=== PATIENT | male | born 1945 | race Caucasian/White ===

== ENCOUNTER 2017-05-01 02:35 | Emergency (ER) | payer MEDICARE ==
[2017-05-01 02:48] VITALS: TEMP 98; BMI 37.0
--- NOTE | 2017-05-01 03:29 | PDOC ---
History of Present Illness - General History Source: Patient Exam Limitations: No Limitations <Sammie Wayne - Last Filed: 05/01/17 03:35> - General History Source: Patient <Darryl Land - Last Filed: 05/05/17 19:32> - General Chief Complaint: Palpitations Stated Complaint: ANXIETY Time Seen by Provider: 05/01/17 02:38 - History of Present Illness Initial Comments: 05/01/17 03:35 The patient is a 71 year old male, with a significant past medical history of Atrial fibrillation, HTN, HLD who presents to the emergency department with palpitations today. Patient states he was exercising and immediately felt sudden onset of palpitations. Patient states he experienced a similar episode 5 years ago when he was diagnosed with Afib. Patient denied any chest pain, chest pressure, SOB, lightheadedness, dizziness or headache. Patient took aspirin however denies any relief of symptoms. He denies fever, chills, abdominal pain, nausea, vomit, diarrhea or constipation. He denies dysuria, frequency, urgency or hematuria. Allergies: Past surgical history: R elbow and L hand surgery Social history: None PCP: Dr. Boyce (Sammie Wayne) Past History <Tone,Sammie - Last Filed: 05/01/17 03:35> - Past Medical History Cardiac Disorders: Yes (atrial fib) HTN: Yes Hypercholesterolemia: Yes - Psycho/Social/Smoking Cessation Hx Anxiety: No Suicidal Ideation: No Smoking History: Never smoked Have you smoked in the past 12 months: No Information on smoking cessation initiated: No Hx Alcohol Use: No Drug/Substance Use Hx: No <Darryl Land - Last Filed: 05/05/17 19:32> - Past Medical History Allergies/Adverse Reactions: Allergies Allergy/AdvReac Type Severity Reaction Status Date / Time No Known Allergies Allergy Verified 05/01/17 02:46 Home Medications: Ambulatory Orders Propafenone HCl [Rythmol -] 150 mg PO TID 05/07/15 Metoprolol Tartrate [Lopressor -] 50 mg PO BID tablet 05/09/15 Atorvastatin Ca [Lipitor] 40 mg PO HS #30 tablet 05/15/15 Tamsulosin HCl [Flomax -] 0.4 mg PO DAILY@0830 #30 cap.er.24h 09/15/15 Review of Systems - Review of Systems Able to Perform ROS?: Yes <Sammie Wayne - Last Filed: 05/01/17 03:35> <Darryl Land - Last Filed: 05/05/17 19:32> - Review of Systems Comments:: 05/01/17 03:35 GENERAL/CONSTITUTIONAL: No fever or chills. No weakness. HEAD, EYES, EARS, NOSE AND THROAT: No change in vision. No ear pain or discharge. No sore throat. GASTROINTESTINAL: No nausea, vomiting, diarrhea or constipation. GENITOURINARY: No dysuria, frequency, or change in urination. CARDIOVASCULAR:+palpitations. No chest pain or shortness of breath. RESPIRATORY: No cough, wheezing, or hemoptysis. MUSCULOSKELETAL: No joint or muscle swelling or pain. No neck or back pain. SKIN: No rash NEUROLOGIC: No headache, vertigo, loss of consciousness, or change in strength/ sensation. ENDOCRINE: No increased thirst. No abnormal weight change. HEMATOLOGIC/LYMPHATIC: No anemia, easy bleeding, or history of blood clots. ALLERGIC/IMMUNOLOGIC: No hives or skin allergy. (Sammie Wayne) *Physical Exam <Sammie Wayne - Last Filed: 05/01/17 03:35> <Darryl Land - Last Filed: 05/05/17 19:32> - Vital Signs Last Vital Signs Temp Pulse Resp BP Pulse Ox 98.0 F 68 21 144/83 100 05/01/17 02:46 05/01/17 04:48 05/01/17 04:48 05/01/17 04:48 05/01/17 04:48 - Physical Exam Comments: 05/01/17 03:36 GENERAL: Awake, alert, and fully oriented, in no acute distress HEAD: No signs of trauma EYES: PERRLA, EOMI, sclera anicteric, conjunctiva clear ENT: Auricles normal inspection, hearing grossly normal, nares patent, oropharynx clear without exudates. Moist mucosa NECK: Normal ROM, supple, no lymphadenopathy, JVD, or masses LUNGS: Breath sounds equal, clear to auscultation bilaterally. No wheezes, and no crackles HEART: Regular rate and rhythm, normal S1 and S2, no murmurs, rubs or gallops ABDOMEN: Soft, nontender, normoactive bowel sounds. No guarding, no rebound. No masses EXTREMITIES: Normal range of motion, no edema. No clubbing or cyanosis. No cords, erythema, or tenderness NEUROLOGICAL: Cranial nerves II through XII grossly intact. Normal speech, normal gait SKIN: Warm, Dry, normal turgor, no rashes or lesions noted. (Sammie Wayne) ED Treatment Course - LABORATORY CBC & Chemistry Diagram: 05/01/17 03:28 05/01/17 03:28 <Darryl Land - Last Filed: 05/05/17 19:32> - ADDITIONAL ORDERS Additional order review: 05/01/17 03:28 RBC 4.50 D MCV 87.6 MCHC 34.5 RDW 15.1 D MPV 8.8 D Medical Decision Making <Sammie Wayne - Last Filed: 05/01/17 03:35> <Darryl Land - Last Filed: 05/05/17 19:32> - Medical Decision Making 05/05/17 19:32 Dr. Land: The scribe's documentation has been prepared under my direction and personally reviewed by me in its entirery. I confirm that the note above accurately reflects all work, treatment, procedures, and medical decision making performed by me. (Darryl Land) *DC/Admit/Observation/Transfer <Sammie Wayne - Last Filed: 05/01/17 03:35> - Discharge Dispostion Admit: No <Darryl Land - Last Filed: 05/05/17 19:32> Diagnosis at time of Disposition: Palpitations - Discharge Dispostion Disposition: HOME Condition at time of disposition: Good - Patient Instructions Additional Instructions: Please return to ED if you experience chest pain, shortness of breath, worsening palpitations or worsening symptoms. - Attestations Scribe Attestion: 05/01/17 03:36 Documentation prepared by Sammie Wayne, acting as medical records analyst for Darryl Land DO. (Sammie Wayne)
[2017-05-01 03:42] LABS: MCH 30.2 pg (25.7-33.7); MCHC 34.5 g/dl (32.0-35.9); MEAN CELL VOLUME 87.6 fl (80-96); MEAN PLT VOLUME 8.8 fl (7.5-11.1); PLATELET COUNT 180 K/MM3 (134-434); RDW 15.1 % (11.9-15.9); WHITE BLOOD COUNT 11.3 K/mm3 (4.0-10.0)
--- NOTE | 2017-05-01 04:03 | PDOC ---
History of Present Illness - General Chief Complaint: Palpitations Stated Complaint: ANXIETY Time Seen by Provider: 05/01/17 02:38 History Source: Patient - History of Present Illness Initial Comments: 05/01/17 03:54 71 yo M with h/o Afib who presents with palpitations. Pt. reports palpitations beginning of 1 hour duration prior to arrival. Pt. states that he arrived EMS with normal EKG. Denies any other symptoms. Denies chest pain, SOB, lightheadedness, syncope, fevers/chills, N/V, back pain, weakness, numbness/ tingling, jaw pain, neck pain. On Propafenone and Metoprolol. Past History - Past Medical History Allergies/Adverse Reactions: Allergies Allergy/AdvReac Type Severity Reaction Status Date / Time No Known Allergies Allergy Verified 05/01/17 02:46 Home Medications: Ambulatory Orders Propafenone HCl [Rythmol -] 150 mg PO TID 05/07/15 Metoprolol Tartrate [Lopressor -] 50 mg PO BID tablet 05/09/15 Atorvastatin Ca [Lipitor] 40 mg PO HS #30 tablet 05/15/15 Tamsulosin HCl [Flomax -] 0.4 mg PO DAILY@0830 #30 cap.er.24h 05/15/15 Cardiac Disorders: Yes (atrial fib) HTN: Yes Hypercholesterolemia: Yes - Psycho/Social/Smoking Cessation Hx Anxiety: No Suicidal Ideation: No Smoking History: Never smoked Have you smoked in the past 12 months: No Information on smoking cessation initiated: No Hx Alcohol Use: No Drug/Substance Use Hx: No Review of Systems - Review of Systems Comments:: 05/01/17 04:07 GENERAL/CONSTITUTIONAL: No fever or chills. No weakness. HEAD, EYES, EARS, NOSE AND THROAT: No change in vision. No ear pain or discharge. No sore throat.- CARDIOVASCULAR: + Palpitations. No chest pain or shortness of breath RESPIRATORY: No cough, wheezing, or hemoptysis. GASTROINTESTINAL: No nausea, vomiting, diarrhea or constipation. GENITOURINARY: No dysuria, frequency, or change in urination. MUSCULOSKELETAL: No joint or muscle swelling or pain. No neck or back pain. SKIN: No rash NEUROLOGIC: No headache, vertigo, loss of consciousness, or change in strength/ sensation. ENDOCRINE: No increased thirst. No abnormal weight change HEMATOLOGIC/LYMPHATIC: No anemia, easy bleeding, or history of blood clots. ALLERGIC/IMMUNOLOGIC: No hives or skin allergy. *Physical Exam - Vital Signs Last Vital Signs Temp Pulse Resp BP Pulse Ox 98.0 F 70 20 144/72 95 05/01/17 02:46 05/01/17 02:46 05/01/17 02:46 05/01/17 02:46 05/01/17 02:46 - Physical Exam Comments: 05/01/17 04:07 GENERAL: Awake, alert, and fully oriented, in no acute distress HEAD: No signs of trauma, normocephalic, atraumatic EYES: PERRLA, EOMI, sclera anicteric, conjunctiva clear ENT: Auricles normal inspection, hearing grossly normal, nares patent, oropharynx clear without exudates. Moist mucosa NECK: Normal ROM, supple, no lymphadenopathy, JVD, or masses LUNGS: No distress, speaks full sentences, clear to auscultation bilaterally HEART: Regular rate and rhythm, normal S1 and S2, no murmurs, rubs or gallops, peripheral pulses normal and equal bilaterally. EXTREMITIES: Normal inspection, Normal range of motion, no edema. No clubbing or cyanosis. SKIN: Warm, Dry, normal turgor, no rashes or lesions noted. Heart Score/ECG Review - History History: Slightly suspicious - Electrocardiogram EKG: Normal - Age Age: >/= 65 - Risk Factors Risk Factors Heart Score: Yes Hx Obesity Based on the list above the patient has:: 1-2 risk factors - ECG Intrepretation Rhythm: Regular Rhythm - [place]: Normal - ECG Impressions Normal ECG: Yes Non-specific ST Elevation: No Ischemic Changes: No Torsades melony Pointes: No WPW: No ED Treatment Course - LABORATORY CBC & Chemistry Diagram: 05/01/17 03:28 05/01/17 03:28 Medical Decision Making - Medical Decision Making 71 yo M with h/o Afib who presents with palpitations. Pt. reports palpitations beginning of 1 hour duration prior to arrival. Pt. states that he arrived EMS with normal EKG. Denies any other symptoms. Denies chest pain, SOB, lightheadedness, syncope, fevers/chills, N/V, back pain, weakness, numbness/ tingling, jaw pain, neck pain. On Propafenone and Metoprolol. DDx: Afib, Anxiety ED Course: CBC CMP EKG Stable Discharge 05/01/17 04:38 *DC/Admit/Observation/Transfer Diagnosis at time of Disposition: Palpitations - Discharge Dispostion Disposition: HOME Condition at time of disposition: Good Admit: No - Patient Instructions Additional Instructions: Please return to ED if you experience chest pain, shortness of breath, worsening palpitations or worsening symptoms.
[2017-05-01 04:12] LABS: INR 1.23 (0.82-1.09); PROTHROMBIN TIME (PATIENT) 13.6 SEC (9.98-11.88)
[2017-05-01 04:21] LABS: ANION GAP 11 (8-16); BILIRUBIN,TOTAL 0.8 mg/dL (0.2-1.0); CALCIUM 8.8 mg/dL (8.5-10.1); CO2 27 mmol/L (21-32); CREATININE 1.3 mg/dL (0.7-1.3); GLUCOSE,RANDOM 112 mg/dL (74-106); SGPT/ALT 30 U/L (12-78); TOT PROT 7.4 g/dl (6.4-8.2)
[2017-05-01 04:24] LABS: ALK PHOS 76 U/L (45-117); CPK 177 IU/L (39-308); TROPONIN I < 0.02 ng/ml (0.00-0.05)
[2017-05-01 04:28] LABS: SGOT/AST 29 U/L (15-37)
[2017-05-01 05:17] VITALS: BP 144/83; PULSE 68
--- NOTE | 2017-05-02 13:57 | EKG ---
Test Reason : Blood Pressure : / mmHG Vent. Rate : 069 BPM Atrial Rate : 069 BPM P-R Int : 194 ms QRS Dur : 104 ms QT Int : 402 ms P-R-T Axes : 073 008 023 degrees QTc Int : 430 ms NORMAL SINUS RHYTHM NORMAL ECG WHEN COMPARED WITH ECG OF 07-MAY-2015 09:32, NO SIGNIFICANT CHANGE WAS FOUND REPEAT EKG IF CLINICALLY INDICATED Confirmed by WANDA MUNOZ MD ([id number]) on 05/02/2017 1:56:42 PM Referred By: Confirmed By:WANDA MUNOZ MD
== END 2017-05-01 04:51 | disposition home or self-care (01) ==
LOC: JER 02:35
DX: R00.2 Palpitations (principal); I48.91 Unspecified atrial fibrillation; I10 Essential (primary) hypertension; E78.00 Pure hypercholesterolemia, unspecified
CPT/HCPCS: 36415; 80053; 82553; 83880; 84484; 85027; 85610; 93005; 93010; 99283-25

== ENCOUNTER 2019-08-19 03:57 | Emergency (ER) | payer OTHER, MEDICARE ==
[2019-08-19 04:06] VITALS: BP 170/84; PULSE 72; TEMP 97.1; BMI 36.2
--- NOTE | 2019-08-19 04:23 | PDOC ---
History of Present Illness - General Chief Complaint: Palpitations Stated Complaint: PALPITATIONS Time Seen by Provider: 08/19/19 04:05 History Source: Patient Exam Limitations: No Limitations - History of Present Illness Initial Comments: 08/19/19 04:20 73y M with PMH of Afib (metoprolol and Eliquis), HTN, HLD, BPH, Anxiety presenting to the ED with complaints of palpitations that began 4 hours ago and have been intermittent. Patient states he was diagnosed with Afib many years ago and has not had palpitations for a few years now. When he had similar symptoms in the past, the metoprolol dose was increased to 100 from 50. He states he was started on Eliquis 2 days ago but was not on anything prior to that. Denies chest pain, sob, cough, congestion, back pain, neck pain, headache , numbness/tingling, abdominal pain, n/v/d, weight changes, new leg swelling, recent surgeries or travel. He was diagnosed with an ear infection 1-2 weeks ago and took amoxicillin. PMD: [place] PMH: see hpi Meds: see med rec Allergies: nkda Past History - Past Medical History Allergies/Adverse Reactions: Allergies Allergy/AdvReac Type Severity Reaction Status Date / Time No Known Allergies Allergy Verified 08/19/19 04:00 Home Medications: Ambulatory Orders Propafenone HCl [Rythmol -] 150 mg PO TID 05/07/15 Atorvastatin Ca [Lipitor] 40 mg PO HS #30 tablet 05/15/15 Tamsulosin HCl [Flomax -] 0.4 mg PO DAILY@0830 #30 cap.er.24h 05/15/15 Apixaban [Eliquis] 5 mg PO BID 08/19/19 Metoprolol Tartrate [Lopressor -] 100 mg PO BID 08/19/19 Triamterene/Hydrochlorothiazid [Triamterene-Hctz 37.5-25 mg Cp] 1 each PO DAILY 08/19/19 Cardiac Disorders: Yes (atrial fib) HTN: Yes Hypercholesterolemia: Yes - Psycho Social/Smoking Cessation Hx Smoking History: Never smoked Have you smoked in the past 12 months: No Information on smoking cessation initiated: No Hx Alcohol Use: No Drug/Substance Use Hx: No Review of Systems - Review of Systems Constitutional: No: Symptoms Reported HEENTM: No: Symptoms Reported Respiratory: No: Symptoms reported Cardiac (ROS): Yes: Palpitations ABD/GI: No: Symptoms Reported : No: Symptoms Reported Musculoskeletal: No: Symptoms Reported Integumentary: No: Symptoms Reported Neurological: No: Symptoms reported *Physical Exam - Vital Signs Last Vital Signs Temp Pulse Resp BP Pulse Ox 97.1 F L 72 22 H 170/84 97 08/19/19 04:00 08/19/19 04:00 08/19/19 04:00 08/19/19 04:00 08/19/19 04:00 - Physical Exam General Appearance: Yes: Appropriately Dressed, Obese. No: Apparent Distress HEENT: positive: EOMI, JAYLEN, TMs Normal. negative: Pharyngeal Erythema, Tonsillar Exudate, TM Bulging, TM Dull, TM Erythema Neck: positive: Trachea midline, Supple. negative: Lymphadenopathy (R), Lymphadenopathy (L) Respiratory/Chest: positive: Lungs Clear, Normal Breath Sounds. negative: Crackles, Rales, Rhonchi, Stridor, Wheezing Cardiovascular: positive: Regular Rhythm, Regular Rate, S1, S2. negative: Edema , JVD, Murmur Gastrointestinal/Abdominal: positive: Normal Bowel Sounds, Soft. negative: Tender Extremity: positive: Normal Capillary Refill, Pedal Edema (up to ankles. baseline). negative: Swelling, Calf Tenderness, Erythema Integumentary: positive: Normal Color Neurologic: positive: arts manager II-XII NML intact, Fully Oriented, Alert, Normal Mood/ Affect, Normal Response, Motor Strength 5/5 ED Treatment Course - LABORATORY CBC & Chemistry Diagram: 08/19/19 04:35 08/19/19 04:35 - RADIOLOGY Radiology Studies Ordered: Category Date Time Status CHEST X-RAY PORTABLE* [RAD] Stat Radiology 08/19/19 04:08 Ordered Medical Decision Making - Medical Decision Making 08/19/19 04:27 73y M with PMH of afib presenting with complaints of intermittent palpitations x4h. vitals wnl pe benign ddx includes but not limited to afib rvr, pe, acs, mi dissection. patient appears comfortable, does not have any active complaints, resolved symptoms and normal exam. low suspicion for acs/pe. will obtain basic labs, cardiac labs, tsh. ekg, cxr. ekg: nsr at 69bpm. pr 200. otherwise normal intervals. no eladio or depressions. while in ED patient did not experience any palpitations and while on monitor there was no afib rvr or tachycardia. labs show low K (repleted) and elevated t. bili with normal lfts. does not require cxr given patient does not have any symptoms. safe for dc home. will f/u with pmd and sales representative supervisor. given return precautions Discharge - Discharge Information Problems reviewed: Yes Clinical Impression/Diagnosis: Palpitations Condition: Good Disposition: HOME - Admission No - Follow up/Referral Referrals: Suzanne Boyce MD [Primary Care Provider] - Jethro Leonard MD [Staff Physician] - - Patient Discharge Instructions Patient Printed Discharge Instructions: DI for Palpitations Additional Instructions: You were seen in the emergency room today for palpitations. The blood work shows low potassium for which you were given a potassium pill and an elevated bilirubin level. This is not dangerous however requires follow up along with the palpitations. Please make an appointment with your doctor regarding the palpitations and bilirubin level. Take your medications as directed. Come back to the emergency room if you experience palpitations, shortness of breath, abdominal pain, if your skin starts to look yellow or if any new or concerning symptom develops. Thank you - Post Discharge Activity
--- NOTE | 2019-08-19 04:32 | PDOC ---
Attending Attestation - Resident Resident Name: Cindy Weston - ED Attending Attestation I have performed the following: I have examined & evaluated the patient, The case was reviewed & discussed with the resident, I agree w/resident's findings & plan, Exceptions are as noted - HPI HPI: 08/19/19 07:54 See resident HPI - Physicial Exam PE: 08/19/19 07:54 Agree with resident exam - Medical Decision Making 08/19/19 07:54 Hx of paroxysmal AFib, on rate and rhythm control, very recently started on AC Currently asymptomatic EKG nsr, normal rate F/u labs hypokalemia replete dc with pcp, cards f/u
[2019-08-19 04:42] LABS: BASO % 0.7 % (0-2.0); EOS % 1.5 % (0-4.5); HEMATOCRIT 40.5 % (35.4-49); HEMOGLOBIN 14.2 GM/dL (11.7-16.9); LYMPH % 25.8 % (8-40); MCH 30.6 pg (25.7-33.7); MEAN CELL VOLUME 87.4 fl (80-96); MEAN PLT VOLUME 7.6 fl (7.5-11.1); MONO % 8.4 % (3.8-10.2); NEUT % 63.6 % (42.8-82.8); PLATELET COUNT 211 K/MM3 (134-434); RBC 4.63 M/mm3 (4.00-5.60); RDW 15.2 % (11.9-15.9); WHITE BLOOD COUNT 8.3 K/mm3 (4.0-10.0)
[2019-08-19 05:13] LABS: BILIRUBIN,TOTAL 1.5 mg/dL (0.2-1); BLOOD UREA NITROGEN 8.9 mg/dL (7-18); CALCIUM 9.2 mg/dL (8.5-10.1); CREATININE 1.1 mg/dL (0.55-1.3); MAGNESIUM 1.8 mg/dL (1.8-2.4); POTASSIUM 3.3 mmol/L (3.5-5.1); TOT PROT 7.5 g/dl (6.4-8.2)
[2019-08-19] MEDS ORDERED: POTASSIUM CHLORIDE TABS 20 MEQ TABLET.ER (FP) PO ONE ×2 (05:19→05:34)
[2019-08-19 05:26] LABS: INR 1.83 (0.83-1.09); PROTHROMBIN TIME (PATIENT) 21.7 SEC (9.7-13.0)
--- NOTE | 2019-08-19 10:48 | EKG ---
Test Reason : Blood Pressure : / mmHG Vent. Rate : 069 BPM Atrial Rate : 069 BPM P-R Int : 200 ms QRS Dur : 100 ms QT Int : 402 ms P-R-T Axes : 046 012 030 degrees QTc Int : 430 ms POOR DATA QUALITY, INTERPRETATION MAY BE ADVERSELY AFFECTED NORMAL SINUS RHYTHM NONSPECIFIC ST ABNORMALITY WHEN COMPARED WITH ECG OF 01-MAY-2017 02:40, NO SIGNIFICANT CHANGE WAS FOUND Confirmed by HIEN PACHECO, MAYTE ([id number]) on 08/19/2019 10:48:13 AM Referred By: Confirmed By:MAYTE STANFORD MD
== END 2019-08-19 06:47 | disposition home or self-care (01) ==
LOC: JER 03:57
DX: R00.2 Palpitations (principal); E87.6 Hypokalemia; I48.0 Paroxysmal atrial fibrillation; Z79.01 Long term (current) use of anticoagulants; I10 Essential (primary) hypertension; E78.5 Hyperlipidemia, unspecified; F41.9 Anxiety disorder, unspecified; N40.0 Benign prostatic hyperplasia without lower urinary tract symptoms
CPT/HCPCS: 36415; 80053; 83735; 84443; 84484; 85025; 85610; 93005; 93010; 99284-25

== ENCOUNTER 2025-03-21 19:35 | Observation (INO) | payer OTHER, MEDICARE ==
[2025-03-21 21:28] LABS: ABSOLUTE IMMATURE GRANULOCYTES 0.05 x10^3/uL (0.0-0.031); BASOPHILS # 0.03 x10^3/uL (0.01-0.08); EOSINOPHIL % 0.7 % (0.8-7.0); EOSINOPHILS # 0.07 x10^3/uL (0.04-0.54); MCHC 34.9 g/dl (32.3-36.5); MEAN CELL VOLUME 85.6 fl (79.0-92.2); MEAN PLT VOLUME 10.2 fl (9.4-12.4); MONOCYTE # 0.66 x10^3/uL (0.30-0.82); MONOCYTE % 6.3 % (5.3-12.2); RDW 13.6 % (12.2-16.6)
[2025-03-21 22:14] LABS: CO2 29.0 mmol/L (21-32); GLUCOSE,RANDOM 132.0 mg/dL (74-106)
[2025-03-21 22:17] LABS: CREATININE 1.2 mg/dL (0.55-1.3); SGPT/ALT 23.0 U/L (13-61)
[2025-03-21] MEDS ORDERED: SODIUM CHLORIDE 0.9% 500 ML INFUS.BAG IV ONE (22:17)
[2025-03-21 22:18] LABS: TOT PROT 7.0 g/dl (6.4-8.2)
[2025-03-21 22:20] LABS: ALK PHOS 103.0 U/L (45-117)
[2025-03-21 22:29] LABS: SGOT/AST 23.0 U/L (15-37)
[2025-03-21] MEDS ORDERED: MAGNESIUM SULFATE IN WATER 2 GM/50 ML IVPB IVPB ONE (22:41)
[2025-03-21] MEDS: LACTATED RINGERS SOLUTION 1000 ML INFUS.BAG IV ONE (22:46)
[2025-03-21] MEDS: MAGNESIUM SULFATE IN WATER 2 GM/50 ML IVPB IVPB ONE (22:50)
[2025-03-21 22:55] LABS: HIV INTERPRETATION NEGATIVE (NEGATIVE)
[2025-03-21 22:57] LABS: HCV DIAGNOSTIC IN-HOUSE W/RFLX NON-REACTIVE (NONREACTIVE)
[2025-03-21] MEDS ORDERED: DOCUSATE SODIUM 100 MG CAPSULE (FP) PO PRN (23:41)
[2025-03-22] MEDS ORDERED: TAMSULOSIN HCL 0.4 MG CAP ONE (00:36)
[2025-03-22] MEDS ORDERED: APIXABAN 5 MG TABLET ONE (00:36)
[2025-03-22] MEDS ORDERED: ATORVASTATIN CA 20 MG TABLET (FP) ONE (00:36)
[2025-03-22] MEDS ORDERED: METOPROLOL TARTRATE 50 MG TABLET (FP) ONE (00:36)
[2025-03-22] MEDS: APIXABAN 5 MG TABLET PO SCH (00:39)
[2025-03-22] MEDS: METOPROLOL TARTRATE 50 MG TABLET (FP) PO SCH (00:39)
[2025-03-22 01:53] VITALS: BMI 33.0
[2025-03-22 07:32] LABS: MCHC 35.8 g/dl (32.3-36.5); MEAN CELL VOLUME 85.2 fl (79.0-92.2); MEAN PLT VOLUME 10.5 fl (9.4-12.4); RDW 13.5 % (12.2-16.6)
[2025-03-22 07:39] LABS: INR 2.66 (0.83-1.09); PROTHROMBIN TIME (PATIENT) 29.0 SEC (9.7-13.0)
[2025-03-22 07:42] LABS: ACTIVATED PTT 34.3 SECONDS (25.2-36.5)
[2025-03-22 07:59] LABS: CO2 30.0 mmol/L (21-32); GLUCOSE,RANDOM 98.0 mg/dL (74-106)
[2025-03-22 08:02] LABS: CREATININE 0.9 mg/dL (0.55-1.3)
[2025-03-22] MEDS: TRIAMTERENE AND HCTZ - 37.5 MG/25 MG CAPSULE PO SCH (09:21)
[2025-03-22] MEDS: DEXTROSE 5%-NORMAL SALINE 1,000 ML IV SCH (09:27)
[2025-03-22 11:21] VITALS: BP 149/90; PULSE 78; RESP 21; TEMP 98.2
[2025-03-22] MEDS ORDERED: ATORVASTATIN CA 20 MG TABLET (FP) PO SCH (22:00)
[2025-03-22] MEDS ORDERED: TAMSULOSIN HCL 0.4 MG CAP PO SCH (23:45)
== END 2025-03-22 11:40 | disposition home or self-care (01) ==
LOC: JER 19:35 → JERBED 21:10 → J4S 03-22 00:53
PROVIDERS: ADMIT Family Medicine; ATTEND Family Medicine
PROC: 3E033GC Introduction of Other Therapeutic Substance into Peripheral Vein, Percutaneous Approach (ICD-10-PCS; principal; 2025-03-21)
PROC: 3E0337Z Introduction of Electrolytic and Water Balance Substance into Peripheral Vein, Percutaneous Approach (ICD-10-PCS; 2025-03-21)
DX: I48.91 Unspecified atrial fibrillation (principal); I49.9 Cardiac arrhythmia, unspecified; I10 Essential (primary) hypertension; E78.5 Hyperlipidemia, unspecified; N40.0 Benign prostatic hyperplasia without lower urinary tract symptoms; R94.31 Abnormal electrocardiogram [ECG] [EKG]; F41.9 Anxiety disorder, unspecified; Z87.891 Personal history of nicotine dependence; Z79.01 Long term (current) use of anticoagulants
CPT/HCPCS: 36415; 71045-TC-FY; 74178-TC; 80048; 80053; 83735; 84439; 84443; 84484; 85025; 85027; 85610; 85730; 86803; 86850; 86900; 86901; 87389; 93005; 93010; 93306-TC; 96365; 99285-25; G0378; Q9967